=== PATIENT | male | born 1980 | race Caucasian/White ===

== ENCOUNTER → 2016-10-23 | Outpatient (CLI) | payer MEDICAID ==
[~2016-10-23] MED LIST: ASA325 MG PO; AUGMENTIN875 MG PO; BUMETANIDE2 MG PO; COUMADIN5 MG PO; LEXAPRO DPS10 MG PO; POTASSIUM CHLO20 ME2 PO; TOPROL XL DPS50 MG PO; TYLENOL DPS325 MG PO; VITAMIN D31000 UNIT PO; ZAROXOLYN2.5 MG PO
== END | disposition home or self-care (01) ==
LOC: PTH.S 10-13 07:30
DX: Z48.812 Encounter for surgical aftercare following surgery on the circulatory system (principal); Z95.811 Presence of heart assist device

== ENCOUNTER → 2016-10-30 | Outpatient (CLI) | payer MEDICAID | END | disposition home or self-care (01) | LOC: PTH.S 11:30 | DX: Z48.812 Encounter for surgical aftercare following surgery on the circulatory system (principal); Z95.811 Presence of heart assist device ==

== ENCOUNTER → 2016-11-23 | Outpatient (CLI) | payer MEDICAID, SELFPAY | END | disposition home or self-care (01) | DX: Z48.812 Encounter for surgical aftercare following surgery on the circulatory system (principal); Z95.811 Presence of heart assist device ==

== ENCOUNTER → 2016-12-01 | Outpatient (CLI) | payer MEDICAID | END | disposition home or self-care (01) | LOC: PTH.S 14:15 | DX: Z48.812 Encounter for surgical aftercare following surgery on the circulatory system (principal); Z95.811 Presence of heart assist device ==